=== PATIENT | female | born 1960 | race Caucasian/White ===

== ENCOUNTER 2018-04-13 07:42 | Outpatient (CLI) | payer OTHER ==
--- NOTE | 2018-04-13 09:58 | CT ---
CT OF THE ABDOMEN AND PELVIS: DATE: 04/13/2018. COMPARISON: None. HISTORY: Left lower quadrant pain for 7 months, evaluate for diverticulitis. TECHNIQUE: Serial axial CT imaging at 5 mm intervals from the lung bases through the pubic symphysis with intrav enous and oral contrast. Coronal reformatted imaging obtained. FINDINGS: The imaged lung bases unremarkable. Cholecystectomy clips are present. No free intraperitoneal air or fluid is seen. There is a tiny hypodensity in the superior aspect of the right lobe of the liver on image 9, too sma ll to characterize. Hepatic parenchyma otherwise unremarkable. Spleen, pancreas, and adrenal glands unremarkable. A 6 mm hypodensity in the upper pole of right kidney noted, too small to characterize, statistically likely representing a small cyst. Uterus appears surgically absent. No significant sigmoid diverticulosis. No evidence for bowel infl ammatory change or bowel obstruction. Vascular structures of abdomen and pelvis are patent. No lymphadenopathy is noted in the abdomen or pelvis. Posterior fusion hardware is present at the L4, L5, and S1 levels. No acute osseous abnormality. IMPRESSION: No acute findings. POS: [facility]
== END 2018-04-13 07:43 | disposition home or self-care (01) ==
LOC: SCSCT 07:42
PROVIDERS: ATTEND Family Medicine
DX: R10.814 Left lower quadrant abdominal tenderness (principal)
CPT/HCPCS: 74177; 74178

== ENCOUNTER 2020-06-19 08:04 | Outpatient (CLI) | payer OTHER ==
--- NOTE | 2020-06-19 13:47 | RAD ---
RADIOGRAPH CERVICAL SPINE 5 VIEWS: 06/19/20 HISTORY: 60-year-old female with cervicalgia and left cervical radiculopathy. TECHNIQUE: Lateral, AP, open mouth, Fuchs, and swimmers, views. COMPARISON: None. FINDINGS: Metallic plate and screws at bilateral mandibular rami connected to metallic TJR hardware at bilatera l TMJs. Mild DJD at bilateral atlanto-axial joints, right greater than left. Multilevel bilateral facet DJD, including high grade on the right. Vertebral body heights are maintained. Mild disc space narrowing at C5-6. No high grade disc space narrowing at any level. Minimal anterolisthesis of C3 on C4, C4 on C5, and C7 on T1, due to facet DJD. No prevertebral soft t issue swelling. Odontoid is intact. IMPRESSION: 1. Cervical spondylosis consisting of multilevel facet osteoarthrosis. 2. Mild degenerative disc changes at C5-6. 3. 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 VASYL [] POS: [facility]
== END 2020-06-19 08:05 | disposition home or self-care (01) ==
LOC: SCSRAD 08:04
PROVIDERS: ATTEND Family Medicine
DX: R20.0 Anesthesia of skin (principal); M47.812 Spondylosis without myelopathy or radiculopathy, cervical region; M50.322 Other cervical disc degeneration at C5-C6 level; Z98.890 Other specified postprocedural states
CPT/HCPCS: 72040